=== PATIENT | female | born 1990 | race Asian ===

== ENCOUNTER 2023-04-28 12:55 | Outpatient (REF) | payer OTHER, SELFPAY ==
--- NOTE | ~2023-04-28 | US_ITS ---
EXAMINATION: US PELVIS CLINICAL INFORMATION: Polycystic ovarian syndrome LMP January 2023 COMPARISON: Prior pelvic ultrasound at outside facility. TECHNIQUE: Ultrasound of the pelvis is performed using both transabdominal and transvaginal transducers along with Doppler. Transvaginal imaging is performed due to inadequate visualization transabdominally. FINDINGS: Uterus: The uterus is anteverted and measures 9.0 x 2.6 x 5.3 cm. The endometrial thickness is 1.2 cm. The uterus is smooth in contour and has normal myometrial echogenicity. No visible fibroid. Adnexa: Both ovaries are visualized. There is normal color flow to the adnexa. There is no ovarian torsion. There is no pelvic ascites or fluid collection. Right ovary measures 2.3 x 2.9 x 1.9 cm. Volume 6.7 mL. Left ovary measures 3.7 x 2.0 x 2.8 cm. Volume 11.1 mL. 1.7 x 0.9 x 1.5 cm involuting corpus luteum is seen. Slight enlargement of the left ovary is due to the involuting corpus luteum. US/US pelvic and transvaginal IMPRESSION: 1. Normal uterus and right ovary. 2. 1.7 cm involuting corpus luteum in the left ovary. This most likely causes the slightly larger on the left ovary.
== END 2023-04-28 12:56 | disposition home or self-care (01) ==
LOC: HO.UMASIMG 12:55
PROVIDERS: Visit Provider Nurse Practitioner Women's Health
DX: E28.2 Polycystic ovarian syndrome (principal); I10 Essential (primary) hypertension
CPT/HCPCS: 76830; 76856